=== PATIENT | male | born 1970 | race Asian ===

== ENCOUNTER 2016-06-20 07:12 | Emergency (ER) | payer OTHER ==
[~2016-06-20 07:12] MED LIST: AMOXICILLIN875 MG PO; AUGMENTIN875 M1 PO; BIAXIN PO; DICLOFENAC PO; FLOXIN OTIC5 M1 AS; NO MEDICATIONS; NORFLEX100 M1 PO; PRILOSEC40 MG PO; ZOFRAN ODT4 MG PO
[2016-06-20 07:47] LABS: INFLUENZA A NEG (NEG); INFLUENZA B NEG (NEG)
== END 2016-06-20 08:15 | disposition home or self-care (01) ==
LOC: SED 07:12
PROVIDERS: Emergency Medicine
DX: J02.0 Streptococcal pharyngitis (principal)
CPT/HCPCS: 87804; 87880; 99282